=== PATIENT | female | born 1970 | race Caucasian/White ===

== ENCOUNTER 2017-04-01 12:50 | Emergency (ER) | payer OTHER ==
--- NOTE | 2017-04-01 14:38 | Diagnostic Imaging Report ---
[facility] [address] [facility] [address] [address] Report Submission Date: Apr 01, 2017 2:32:49 PM CDT Patient Study Name: REGIS CAMERON Date: Apr 01, 2017 1:31:56 PM CDT Modality Type: CR Gender: F Description: UPPER EXTREMITY : 74 Institution: [facility] Physician ELLYN HAYNES - ER Left hand three views Clinical history pain Technique AP lateral oblique FINDINGS: Bone density is normal. I see no fracture or lytic change. 5th digit appears normal. IMPRESSION: Negative study Electronically signed on Apr 01, 2017 2:32:49 PM CDT by: Mack ARZATE
--- NOTE | 2017-04-01 14:44 | ED Physician Documentation ---
Upper Extremity Injury - HISTORIAN Historian: patient - HPI Stated Complaint: left hand pain Chief Complaint: Hand Injury Additional Information: Left hand struck by gun slide in training last evening. Hurts most at distal 5th finger. - ROS CONST: no problems - PAST HX Past History: other (tonsillectomy) Allergies/Adverse Reactions: Allergies Allergy/AdvReac Type Severity Reaction Status Date / Time No Known Allergies Allergy Verified 04/01/17 13:34 Home Medications: Ambulatory Orders Medication Instructions Recorded Lisinopril [Prinivil] 20 mg PO DAILY 04/01/17 Nebivolol HCl [Bystolic] 5 mg PO DAILY 04/01/17 - SOCIAL HX Smoking History: non-smoker - FAMILY HX Family History: no significant history - REVIEWED ASSESSMENTS Nursing Assessment Reviewed: Yes Vitals Reviewed: Yes Progress - Progress Progress: Clinical history pain Technique AP lateral oblique FINDINGS: Bone density is normal. I see no fracture or lytic change. 5th digit appears normal. IMPRESSION: Negative study Electronically signed on Apr 01, 2017 2:32:49 PM CDT by: Mack Lucero ED Results Lab/Radiology - Orders Orders: ED Orders Category Date Time Status HAND 3 VIEWS OR MORE [RAD] Stat Exams 04/01/17 Taken Upper Extremity Injury Physic - Physical Exam General Appearance: no acute distress, alert Hand: normal inspection (except scattered superficial abrasions, < 3mm diam), normal ROM Wrist: normal inspection, no evidence of injury Elbow/Forearm: normal inspection, no evidence of injury Shoulder: no evidence of injury Neuro/Vascular/Tendon: no vascular compromise, motor nml, sensation nml Skin: warm,dry Head/ENT: nml inspection Neck/Back: nml inspection Resp/CVS: no resp. distress Discharge Clincal Impression: Contusion of left hand Qualifiers: Encounter type: initial encounter Qualified Code(s): S60.222A - Contusion of left hand, initial encounter Referrals: Reggie Jiménez DO [Primary Care Provider] - 2 Days Home Medications: Ambulatory Orders Lisinopril [Prinivil] 20 mg PO DAILY 04/01/17 Nebivolol HCl [Bystolic] 5 mg PO DAILY 04/01/17 Condition: Good Disposition: 01 HOME, SELF-CARE Decision to Admit: NO Decision Time: 14:40
[2017-04-01 14:45] VITALS: BP 131/87
== END 2017-04-01 14:40 | disposition home or self-care (01) ==
LOC: ED 12:50
DX: S60.222A Contusion of left hand, initial encounter (principal); X58.XXXA Exposure to other specified factors, initial encounter; Y93.9 Activity, unspecified; Y99.9 Unspecified external cause status
CPT/HCPCS: 73130; 99283

== ENCOUNTER 2019-02-05 14:35 | Emergency (ER) | payer OTHER ==
[2019-02-05 14:55] VITALS: BP 115/78
--- NOTE | 2019-02-05 14:59 | ED Physician Documentation ---
Low Back Pain - HISTORIAN Historian: patient - HPI Stated Complaint: low back pain Chief Complaint: Low Back Pain/ Injury Additional Information: Patient presents to ED with complaints of low back pain. Patient reports just prior to arrival that she was at work (she works at the [employer]) and a electronic [employer] door shut on her. She reports she was caught between the door and the door jamb for about 5 seconds. She states the door is a kill door and just keeps shutting. The door hit her across the left breast and the door jamb hit her across her spine. She denies any numbness or tingling. History: denies: back pain Onset: minutes (30) Duration: continues in ED Recent Injury: Yes Context: other (crush injury) Where: work Other Injuries: back Severity: moderate Quality: sharp Associated Symptoms: denies: fever Worsened By:: nothing, upright position Relieved By: remaining still - ROS CONST: no problems CVS/RESP: none EYES/ENT: none MS/SKIN/LYMPH: none Neuro/Psych: none GI/: denies: abdominal pain - PAST HX Past History: denies: back injury Other History: hypertension Surgeries/Procedures: none Allergies/Adverse Reactions: Allergies Allergy/AdvReac Type Severity Reaction Status Date / Time No Known Allergies Allergy Verified 02/05/19 14:55 Home Medications: Ambulatory Orders Medication Instructions Recorded Lisinopril [Prinivil] 20 mg PO DAILY 04/01/17 Hydrochlorothiazide 25 mg PO DAILY 02/05/19 LORazepam [Ativan] 0.5 mg PO TID PRN 02/05/19 Metoprolol Tartrate [Lopressor] 25 mg PO TID 02/05/19 Orphenadrine (Nf) [Norflex] 100 mg PO BID PRN #30 tab 02/05/19 Venlafaxine HCl [Venlafaxine HCl 75 mg PO DAILY 02/05/19 ER] - SOCIAL HX Smoking History: non-smoker Alcohol Use: none Drug Use: none - FAMILY HX Family History: none - VITAL SIGNS Vital Signs: Vital Signs Temp Pulse Resp BP Pulse Ox 98.4 F 78 16 115/78 98 02/05/19 14:35 02/05/19 14:35 02/05/19 14:35 02/05/19 14:35 02/05/19 14:35 - REVIEWED ASSESSMENTS Nursing Assessment Reviewed: Yes Vitals Reviewed: Yes ED Results Lab/Radiology - Radiology Radiology Impressions: Report Submission Date: Feb 05, 2019 3:18:04 PM CDT Patient Study Name: REGIS CAMERON Date: Feb 05, 2019 2:56:32 PM CDT Modality Type: CT Gender: F Description: CT L-SPINE W/O CONTRAS : 74 Institution: [facility] Physician: VITO HEIN EXAMINATION: CT L-SPINE W/O CONTRAS HISTORY: CRUSHED IN FIRE DOOR, LOWER BACK PAIN (Hx) / ITS.REASON crush injury, low back pain (DICOM Hx) TECHNIQUE: CT of the lumbar spine was performed without contrast according to standard protocol. COMPARISON: None FINDINGS: There is grade 1 L4-5 anterolisthesis. Vertebral bodies are normal in height without evidence of acute fracture. There is mild degenerative disc disease. No central canal stenosis is seen. There is advanced L4-5 facet osteoarthritis. No neural foraminal stenosis is seen. No soft tissue abnormality is identified. An intrauterine device is present. IMPRESSION: 1. No evidence of acute fracture in the lumbar spine. Electronically signed on Feb 05, 2019 3:18:04 PM CDT by: Darren Dunham - Orders Orders: ED Orders Category Date Time Status CT L-SPINE W/O CONTRAST Stat Exams 02/05/19 Completed Low Back Pain/Injury - Physical Exam General Appearance: no acute distress, alert. No: c-collar [employer], c-collar in ED, backboard [employer], backboard in ED EENT: AGUEDA Neck: non-tender, painless ROM Resp/CVS: chest non-tender, breath sounds nml, heart sounds nml, no resp. distress, lungs clear, reg. rate & rhythm. No: tenderness, ecchymosis Abdomen: non-tender Back: vertebral point-tendernes (L3-L5) Straight Leg Raising: Negative Left, Positive Left. No: Negative Right Neuro/Psych: oriented x3, motor nml, sensation nml Skin: warm/dry, normal color Extremities: non-tender, no evidence of injury Discharge Clincal Impression: Lumbar back pain Prescriptions: Orphenadrine (Nf) [Norflex] 100 mg PO BID PRN #30 tab PRN Reason: muscle spasm/back pain Referrals: Reggie Jiménez, DO [Primary Care Provider] - 2 Days Additional Instructions: 1. Tylenol and/or Ibuprofen as needed for pain. You may take these together for better pain control 2. Norflex as needed for muscle spasm. This medication will make you drowsy 3. Stay active 4. Follow up with PCP within 1 week 5. Return to ER for new or worsening symtoms. Condition: Stable Disposition: 01 HOME, SELF-CARE Decision to Admit: NO Date of Decison to Admit: 02/05/19 Decision Time: 15:27
--- NOTE | 2019-02-05 15:20 | Diagnostic Imaging Report ---
VITO HEIN [facility] [address] [facility] [address] [place], [place]. [address] Report Submission Date: Feb 05, 2019 3:18:04 PM CDT Patient Study Name: REGIS CAMERON Date: Feb 05, 2019 2:56:32 PM CDT Modality Type: CT Gender: F Description: CT L-SPINE W/O CONTRAS : 74 Institution: [facility] Physician: VITO HEIN EXAMINATION: CT L-SPINE W/O CONTRAS HISTORY: CRUSHED IN FIRE DOOR, LOWER BACK PAIN (Hx) / ITS.REASON crush injury, low back pain (DICOM Hx) TECHNIQUE: CT of the lumbar spine was performed without contrast according to standard protocol. COMPARISON: None FINDINGS: There is grade 1 L4-5 anterolisthesis. Vertebral bodies are normal in height without evidence of acute fracture. There is mild degenerative disc disease. No central canal stenosis is seen. There is advanced L4-5 facet osteoarthritis. No neural foraminal stenosis is seen. No soft tissue abnormality is identified. An intrauterine device is present. IMPRESSION: 1. No evidence of acute fracture in the lumbar spine. Electronically signed on Feb 05, 2019 3:18:04 PM CDT by: Darren ARZATE
== END 2019-02-05 15:35 | disposition home or self-care (01) ==
LOC: ED 14:35
DX: M54.5 Low back pain (principal); W23.0XXA Caught, crushed, jammed, or pinched between moving objects, initial encounter; Y93.89 Activity, other specified; Y92.148 Other place in prison as the place of occurrence of the external cause; Y99.0 Civilian activity done for income or pay
CPT/HCPCS: 72131; 99283; 99284